=== PATIENT | male | born 1995 | race African-American/Black ===

== ENCOUNTER 2018-12-22 16:38 | Emergency (ER) | payer MEDICAID ==
[~2018-12-22] VITALS: Ht 170.2 cm; Wt 81.8 kg
[2018-12-22 16:56] VITALS: BP 116/66; TEMP 97.9
[2018-12-22 19:02] VITALS: PULSE 75
== END 2018-12-22 19:03 | disposition home or self-care (01) ==
LOC: COL.ER 16:38
DX: R19.7 Diarrhea, unspecified (principal)

== ENCOUNTER 2019-01-31 23:38 | Emergency (ER) | payer MEDICAID ==
[~2019-01-31] VITALS: Ht 170.2 cm; Wt 81.8 kg
[2019-01-31 23:43] VITALS: BP 118/67; PULSE 90; TEMP 97.7
== END 2019-02-01 00:16 | disposition home or self-care (01) ==
LOC: COL.ER 23:38
DX: R19.7 Diarrhea, unspecified (principal)

== ENCOUNTER 2019-02-11 22:36 | Emergency (ER) | payer MEDICAID ==
[~2019-02-11] VITALS: Ht 170.2 cm; Wt 81.8 kg
[2019-02-11 22:42] VITALS: TEMP 98.4
[2019-02-11 23:07] LABS: STREP SCREEN NEGATIVE
[2019-02-11 23:46] LABS: BASO % 0.3 % (0.0-2.0); EOS # 0.4 (0.0-0.7); EOS % 5.2 % (0-4.0); GRAN # 3.3 (1.4-6.5); GRAN % 49.5 % (42.2-75.2); HEMATOCRIT 38.6 % (42.0-52.0); HEMOGLOBIN 12.1 g/dl (13.5-18.0); LYMPH # 2.1 (1.2-3.4); LYMPH % 30.6 % (20.0-51.0); MEAN CELL VOLUME 90 fl (80.0-100.0); MEAN CORPUSCULAR HEMOGLOBIN 28 pg (27.0-31.0); MEAN CORPUSCULAR HGB CONC 31 g/dl (33.0-37.0); MEAN PLATELET VOLUME 10.9 fl (7.4-10.4); MONO % 14.3 % (1.7-9.3); PLATELET COUNT 268 K/mm3 (130-400); REDCELL DISTRIBUTION WIDTH-CV 13.4 % (11.5-14.5)
[2019-02-11 23:55] LABS: CREATININE, serum 1.09 (0.66-1.25); POTASSIUM 3.5 mmol/L (3.4-5.0)
[2019-02-12] MEDS ORDERED: PREDNISONE20 MG PO (00:22)
[2019-02-12] MEDS ORDERED: ZITHROMAX Z PA250 MG PO (00:22)
[2019-02-12 00:42] VITALS: BP 127/67; PULSE 100
== END 2019-02-12 00:43 | disposition home or self-care (01) ==
LOC: COL.ER 22:36
PROVIDERS: Emergency Medicine; Physician Assistant
DX: J40 Bronchitis, not specified as acute or chronic (principal)
CPT/HCPCS: J7512

== ENCOUNTER 2019-04-11 20:10 | Emergency (ER) | payer MEDICAID ==
[~2019-04-11] VITALS: Ht 172.7 cm; Wt 81.8 kg
[~2019-04-11 20:10] MED LIST: PREDNISONE20 MG PO; ZITHROMAX Z PA250 MG PO
[2019-04-11 20:21] VITALS: BP 110/56; TEMP 98.2
[2019-04-11 20:47] VITALS: PULSE 85
== END 2019-04-11 20:48 | disposition home or self-care (01) ==
LOC: COL.ER 20:10
DX: R19.7 Diarrhea, unspecified (principal)